=== PATIENT | male | born 1960 | race Caucasian/White ===

== ENCOUNTER 2018-11-20 14:34 | Emergency (ER) | payer OTHER ==
[2018-11-20 14:44] VITALS: TEMP 98
[2018-11-20] MEDS ORDERED: DIPH,PERTUS(ACELL)TETVAC-LF 0.5 ML VIAL IM ONE (14:45)
[2018-11-20 14:57] VITALS: RESP 16
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
--- NOTE | 2018-11-20 16:41 | XR ---
EXAMINATION TYPE: XR shoulder complete RT DATE OF EXAM: 11/20/2018 COMPARISON: NONE HISTORY: Pain TECHNIQUE: 3 views FINDINGS: There is some spurring on the humeral head and glenoid. There is narrowing of the shoulder joint space. I see no fracture nor dislocation. 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 No fracture seen.
--- NOTE | 2018-11-20 16:42 | XR ---
EXAMINATION TYPE: XR chest 2V DATE OF EXAM: 11/20/2018 COMPARISON: NONE HISTORY: Pain TECHNIQUE: Frontal and lateral views of the chest are obtained. FINDINGS: Heart and mediastinum are normal. Lungs are clear. Diaphragm is normal. Bony thorax appear s normal. Pulmonary vascularity is normal. IMPRESSION: Normal chest.
--- NOTE | 2018-11-20 16:44 | XR ---
EXAMINATION TYPE: XR wrist complete LT DATE OF EXAM: 11/20/2018 COMPARISON: NONE HISTORY: Pain TECHNIQUE: 4 views FINDINGS: There is nondisplaced fracture of the radial styloid process. Fracture fragment measures 2 x 1.7 cm. There is no dislocation. Carpal bones are intact. There is some spurring and deformity at t he fifth carpometacarpal joint consistent with an old healed fracture. IMPRESSION: Acute intra-articular fracture of the radial styloid process.
--- NOTE | 2018-11-20 16:46 | XR ---
EXAMINATION TYPE: XR hand complete LT DATE OF EXAM: 11/20/2018 COMPARISON: NONE HISTORY: Pain TECHNIQUE: 3 views FINDINGS: There is nondisplaced fracture of the radial styloid process. Carpal bones are intact. [place] carpals are intact. There is thickening and some deformity of the fifth metacarpal consistent with an old fracture. There is a 1 mm density lateral to the PIP joint of the middle finger consistent with a soft tissue foreign body. IMPRESSION: Radial styloid process nondisplaced fracture. Small 5 mm foreign body at the lateral aspect of the PIP joint of the middle finger.
[2018-11-20] MEDS ORDERED: ceFAZolin 1,000 MG VIAL (IM USE) IM STA (17:05)
[2018-11-20 17:32] LABS: Appearance,Urine Clear (Clear); Bilirubin,Urine Negative (Negative); Blood,Urine Negative (Negative); Color,Urine Yellow; Glucose,Urine (UA) Negative (Negative); Ketones,Urine Negative (Negative); Leukocyte Esterase,Urine Negative (Negative); Mucus,Urine Rare /hpf; Nitrite,Urine Negative (Negative); PH, Urine 5.5 (5.0-8.0); Protein,Urine 2+ (Negative); RBC,Urine <1 /hpf (0-5); Specific Gravity,Urine 1.016 (1.001-1.035); Urobilinogen,Urine <2.0 mg/dL (<2.0); WBC,Urine 1 /hpf (0-5)
[2018-11-20] MEDS ORDERED: ACET/COD 300 MG/30 MG STARTER PACK 6 TAB BTL PO STA (17:51)
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
[2018-11-20 18:02] VITALS: BP 166/90; PULSE 76
== END 2018-11-20 18:02 | disposition home or self-care (01) ==
LOC: EC 14:34
DX: S52.512A Displaced fracture of left radial styloid process, initial encounter for closed fracture (principal); S60.511A Abrasion of right hand, initial encounter; S60.512A Abrasion of left hand, initial encounter; S00.11XA Contusion of right eyelid and periocular area, initial encounter; S60.453A Superficial foreign body of left middle finger, initial encounter; M25.511 Pain in right shoulder; F17.200 Nicotine dependence, unspecified, uncomplicated; Z23 Encounter for immunization; Z86.14 Personal history of Methicillin resistant Staphylococcus aureus infection; V13.4XXA Pedal cycle driver injured in collision with car, pick-up truck or van in traffic accident, initial encounter; Y92.410 Unspecified street and highway as the place of occurrence of the external cause; Y93.55 Activity, bike riding
CPT/HCPCS: 81001; 73030; 73110; 73130; 71046; 72125; 70486; 70450; 90715; 99285; 90471; 96372; J0690

== ENCOUNTER 2018-11-26 12:07 | Emergency (ER) | payer OTHER ==
[2018-11-26 12:26] VITALS: RESP 18
--- NOTE | 2018-11-26 13:45 | XR ---
Chest x-ray with right RIBS HISTORY: Right rib pain, injury one week prior Frontal view of the chest and 4 views of the right ribs submitted and correlated prior chest x-ray cardiac mediastinal silhouette, pulmonary vascularity and arjun are stable. There is eventration of ri ght hemidiaphragm. Some cortical irregularity noted at the anterior fifth rib. No evident airspace di sease, pneumothorax, or pleural effusion. Arthropathy noted in the right shoulder. IMPRESSION: Questionable anterior rib fracture. Bone scan could be performed for increased sensitivit y as indicated if occult fracture is suspected.
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
[2018-11-26 14:45] VITALS: BP 156/119; PULSE 63; TEMP 97.8
== END 2018-11-26 14:45 | disposition home or self-care (01) ==
LOC: EC 12:07
DX: S22.31XD Fracture of one rib, right side, subsequent encounter for fracture with routine healing (principal); F17.200 Nicotine dependence, unspecified, uncomplicated; Z86.14 Personal history of Methicillin resistant Staphylococcus aureus infection; Z79.899 Other long term (current) drug therapy; V29.40XD Motorcycle driver injured in collision with unspecified motor vehicles in traffic accident, subsequent encounter
CPT/HCPCS: 99283